=== PATIENT | female | born 1945 | race Caucasian/White ===

== ENCOUNTER → 2020-08-18 | Day surgery (SDC) | payer MEDICARE ==
[2020-08-13 17:31] VITALS: BMI 27.9
[~2020-08-18] MED LIST: LACTATED RINGERS 1,000 ML IV SCH; PROPOFOL 10 MG/ML 20 ML VIAL IV ONE; SODIUM CHLORIDE 0.9% 1,000 ML IV SCH
[2020-08-18 06:48] LABS: Calcium 9.6 mg/dL (8.4-10.2); Potassium 4.4 mmol/L (3.5-5.1)
[2020-08-18 07:53] VITALS: TEMP 97.3
[2020-08-18 07:55] VITALS: RESP 16
--- NOTE | 2020-08-18 08:24 | CE ---
CARDIAC ELECTROPHYSIOLOGY REPORT DATE OF SERVICE: 08/18/2020. PROCEDURE: Electrical cardioversion. INDICATION: New onset persistent atrial fibrillation. CLINICAL INFORMATION: Mrs. Gee is a 75-year-old lady with a known history of surgical closure of ASD more than 25 years ago. She developed recent onset atrial fib with moderate rate and has some shortness of breath with it. I initiated her on rate control, anticoagulation and also amiodarone. She remained in atrial fib and pharmacological efforts were unsuccessful. She was brought in for electrical cardioversion electively. PROCEDURE NOTE: Under the influence of ultra short-acting intravenous anesthetic agent with the attendance of the anesthesiologist, a single 200 joule shock was delivered with anterior and posterior patches. Patient converted to sinus rhythm, remained hemodynamically stable and neurologically intact. This was a successful electrical cardioversion. She will be discharged later on today if she remains stable. MMODL / CANDICEN: [id number] /
[2020-08-18 08:31] VITALS: PULSE 74
[2020-08-18 09:00] VITALS: BP 131/60
== END ==
LOC: CATHCVL 05:51
PROVIDERS: ATTEND Internal Medicine Interventional Cardiology
DX: I48.19 Other persistent atrial fibrillation (principal); I34.0 Nonrheumatic mitral (valve) insufficiency; Z20.822 Contact with and (suspected) exposure to COVID-19; Z98.890 Other specified postprocedural states; Z79.01 Long term (current) use of anticoagulants; Z79.899 Other long term (current) drug therapy; Z88.2 Allergy status to sulfonamides; K21.9 Gastro-esophageal reflux disease without esophagitis
CPT/HCPCS: 92960; 80048; 87635; J2704; 93005

== ENCOUNTER → 2021-02-08 | Outpatient (CLI) | payer MEDICARE ==
--- NOTE | 2021-02-09 04:34 | MR ---
EXAMINATION TYPE: MR brain wo con DATE OF EXAM: 02/08/2021 COMPARISON: None HISTORY: Abnormal gait, Balance issues, Dizziness for a couple months FINDINGS: There is mild cerebral atrophy. There is no mass effect nor midline shift. There is no sign of intrac ranial hemorrhage. Diffusion images show no evidence of an acute infarct. Corpus callosum is intact. On the T2 and FLAIR images there are a few scattered foci of increased sig nal in the white matter of both cerebral hemispheres. Total number is less than 10 and these measure up to 3 mm. Cerebellum is intact. There is no evidence of a posterior fossa mass. Internal auditory canals appear normal. There is no evidence of cerebellopontine angle mass. Brainstem is intact. There is no eviden ce of sellar mass. There is no evidence of orbital mass. IMPRESSION: Mild atrophy. There are small scattered white matter high signal foci of uncertain significance. No e vidence of cortical infarct. No focal posterior fossa abnormality.
== END | disposition home or self-care (01) ==
LOC: RADMRIMAIN 16:32
PROVIDERS: ATTEND Family Medicine
DX: G31.9 Degenerative disease of nervous system, unspecified (principal)
CPT/HCPCS: 70551

== ENCOUNTER → 2021-02-16 | Outpatient (CLI) | payer MEDICARE ==
--- NOTE | 2021-02-16 16:20 | US ---
EXAMINATION TYPE: US carotid duplex BILAT DATE OF EXAM: 02/16/2021 COMPARISON: NONE CLINICAL HISTORY: R26.89 Abnormal gait due to balance impairment. EXAM MEASUREMENTS: RIGHT: Peak Systolic Velocity (PSV) cm/sec ----- Right CCA: 85.8 ----- Right ICA: 90.1 ----- Right ECA: 116. ICA/CCA ratio: 1.1 RIGHT: End Diastole cm/sec ----- Right CCA: 20.3 ----- Right ICA: 16.3 ----- Right ECA: 11.6 LEFT: Peak Systolic Velocity (PSV) cm/sec ----- Left CCA: 96.8 ----- Left ICA: 98.5 ----- Left ECA: 88.6 ICA/CCA ratio: 1.0 LEFT: End Diastole cm/sec ----- Left CCA: 19.2 ----- Left ICA: 31.4 ----- Left ECA: 17.1 VERTEBRALS (direction of flow): Right Vertebral: Antegrade Left Vertebral: Antegrade Rhythm: Normal No significant velocity elevations, minimal plaque. IMPRESSION: No evidence for hemodynamically significant stenosis. Criteria for Assigning % of Stenosis / Diameter reduction (Estimation based on the indirect measurements of the internal carotid artery velocities (ICA PSV). 1. Normal (no stenosis)=ICA PSV < 125 cm/s: ratio < 2.0: ICA EDV<40 cm/s. 2. Less than 50% stenosis=ICA PSV < 125 cm/s: ratio < 2.0: ICA EDV<40 cm/s. 3. 50 to 69% stenosis=ICA PSV of 125 to 230 cm/s: ration 2.0 ? 4.0: ICA EDV 40-100 cm/s. 4. Greater than 70% stenosis to near occlusion= ICA PSV > 230 cm/s: ratio > 4.0: ICA EDV > 100 cm/s. 5. Near occlusion= ICA PSV velocities may be low or undetectable: variable ratio and ICA EDV. 6. Total occlusion=unable to detect flow.
== END | disposition home or self-care (01) ==
LOC: RADUSWWP 15:40
PROVIDERS: ATTEND Family Medicine
DX: R26.89 Other abnormalities of gait and mobility (principal)
CPT/HCPCS: 93880

== ENCOUNTER 2021-09-12 06:28 | Day surgery (SDC) | payer MEDICARE ==
[~2021-09-12 06:28] MED LIST changes: +ACETAMINOPHEN TAB 500 MG TAB PO PRN; +HEPARIN SODIUM,PORCINE/PF 5,000 UNIT/0.5 ML SYRINGE SQ PRN; +LIDOCAINE 1% (10MG/ML) FOR IV START INTRADERMA PRN; +ONDANSETRON 4 MG/2 ML VIAL IVP ONE; -PROPOFOL 10 MG/ML 20 ML VIAL IV ONE; +Pre Op ABX Message 1 EACH MISC MISCELLANE ONE; -SODIUM CHLORIDE 0.9% 1,000 ML IV SCH; +fentaNYL (PF) 50 MCG/ML 2 ML AMP IV PRN
[2021-09-12] MEDS ORDERED: ONDANSETRON 4 MG/2 ML VIAL ONE (07:14)
[2021-09-12] MEDS ORDERED: MIDAZOLAM 2 MG/2 ML VIAL ONE (08:00)
[2021-09-12] MEDS ORDERED: fentaNYL (PF) 50 MCG/ML 2 ML AMP ONE (08:00)
[2021-09-12] MEDS ORDERED: SODIUM CHLORIDE 0.9% 100 ML with ceFAZolin 2,000 MG IV ONE ×2 (08:00)
[2021-09-12] MEDS ORDERED: PHENYLEPHRINE-0.9% NACL SYG 1,000 MCG/10 ML SYRINGE ONE (08:00)
[2021-09-12] MEDS ORDERED: LIDOCAINE 2% INJ 20 MG/ML (2 ML VIAL) ONE (08:00)
[2021-09-12] MEDS ORDERED: KETOROLAC 15 MG/ML 1 ML VIAL ONE (08:00)
[2021-09-12] MEDS ORDERED: ceFAZolin 1,000 MG VIAL ONE (08:00)
[2021-09-12] MEDS ORDERED: PROPOFOL 10 MG/ML 20 ML VIAL IV ONE (08:00)
[2021-09-12] MEDS ORDERED: SUCCINYLCHOLINE CHLORIDE 100 MG/5 ML SYR IV ONE (08:00)
--- NOTE | 2021-09-12 08:01 | P.GSHP ---
History of Present Illness H&P Date: 09/12/21 Chief Complaint: Hemorrhoids 76-year-old female here today for elective hemorrhoidectomy. Patient was seen in the office 2 months ago. Please refer to that history and physical for details. Patient complaining of left-sided hemorrhoid. There is both pain and bleeding at times. Past Medical History Past Medical History: Atrial Fibrillation, Cancer, GERD/Reflux, Mitral Valve Prolapse (MVP) Additional Past Medical History / Comment(s): skin cancer History of Any Multi-Drug Resistant Organisms: None Reported Past Surgical History: Heart Catheterization, Hysterectomy, Tonsillectomy, Tubal Ligation Additional Past Surgical History / Comment(s): ASD repair 1990 Past Anesthesia/Blood Transfusion Reactions: No Reported Reaction, Motion Sickness Past Psychological History: Anxiety Smoking Status: Never smoker Past Alcohol Use History: Occasional Past Drug Use History: None Reported - Past Family History Father Family Medical History: Deep Vein Thrombosis (DVT) Brother(s) Family Medical History: Pulmonary Embolus Additional Family Medical History / Comment(s): POST COVID Medications and Allergies Home Medications Medication Instructions Recorded Confirmed Type Apixaban [Eliquis] 5 mg PO BID 08/13/20 09/12/21 History Metoprolol Tartrate [Lopressor] 25 mg PO BID 08/13/20 09/12/21 History Omeprazole 20 mg PO DAILY PRN 08/13/20 09/12/21 History Allergies Allergy/AdvReac Type Severity Reaction Status Date / Time Sulfa (Sulfonamide Allergy Dyspnea Verified 09/12/21 07:00 Antibiotics) pain medication Allergy Itching Uncoded 09/12/21 07:01 Surgical - Exam Vital Signs Temp Pulse Resp BP Pulse Ox 98.9 F 75 16 136/69 97 09/12/21 06:58 09/12/21 06:58 09/12/21 06:58 09/12/21 06:58 09/12/21 06:58 Physical exam: General: Well-developed, well-nourished HEENT: Normocephalic, sclerae nonicteric Abdomen: Nontender, nondistended Extremities: No edema Neuro: Alert and oriented Rectal: Left external hemorrhoid with mild induration Assessment and Plan (1) Hemorrhoid Narrative/Plan: 76-year-old female with symptomatically external hemorrhoid in the left lateral location. We'll proceed with operative hemorrhoidectomy at this time. Risks of bleeding, infection, scarring, stricture, fistula, fissure, recurrence reviewed. She understands and wishes to proceed. Current Visit: Yes Status: Acute Code(s): K64.9 - UNSPECIFIED HEMORRHOIDS SNOMED Code(s): 49425455
[2021-09-12 08:11] LABS: African American GFR (CKD) >90 (>60 ml/min/1.73 sqM); Anion Gap 6 mmol/L; Blood Urea Nitrogen 15 mg/dL (7-17); Carbon Dioxide 30 mmol/L (22-30); Chloride 105 mmol/L (98-107); Glucose 108 mg/dL (74-99); Non-African American GFR(CKD) 82 (>60 ml/min/1.73 sqM); Potassium 4.3 mmol/L (3.5-5.1); Sodium 141 mmol/L (137-145)
[2021-09-12] MEDS ORDERED: GELATIN SPONGE,ABSORB (LARGE) 1 EACH SPONGE TOPICAL ONE (08:31)
[2021-09-12] MEDS ORDERED: BUPIVACAINE (PF) 0.25% 30 ML VIAL SQ ONE (08:35)
[2021-09-12] MEDS ORDERED: HYDROcodone/APAP 5-325MG 1 EACH TAB PO PRN (08:44)
[2021-09-12] MEDS ORDERED: NALOXONE 0.4 MG/ML 1 ML VIAL IV PRN (08:44)
--- NOTE | 2021-09-12 08:50 | P.OP ---
Date of Procedure: 09/12/21 Procedure(s) Performed: PREOPERATIVE DIAGNOSIS: Symptomatic hemorrhoids POSTOPERATIVE DIAGNOSIS: Same PROCEDURE: Internal and external hemorrhoidectomy left lateral location SURGEON: Aneudy EBL:. 5 mL ANESTHESIA: Gen. COMPLICATIONS: None OPERATIVE PROCEDURE: Patient was placed under general anesthesia and then placed in the prone jackknife position. The perianal region was prepped and draped sterilely. The patient did have circumferential hemorrhoidal tissue both internal and external noted with the largest area was in the left lateral position. This was a location that was addressed today. The rectal retractor was utilized. A 3-0 chromic stitch was placed at the apex of the hemorrhoidal vasculature. This stitch was left in place for later closure. An elliptical incision was made using a combination of the scalpel, electrocautery, and the Harmonic scalpel to excise the hemorrhoidal tissue in the internal and external component. Bleeding was controlled using primarily the Harmonic scalpel and cautery. The area was irrigated. No bleeding was seen. I then closed the defect using the running locking 3-0 chromic stitch that was previously used. The area again was inspected for bleeding. None was seen. A Gelfoam was rolled and placed in the distal rectum adjacent to the incision line. The area was localized with quarter percent Marcaine solution. DISPOSITION: Stable to recovery room
[2021-09-12 09:00] VITALS: TEMP 97
[2021-09-12 09:21] VITALS: RESP 18
[2021-09-12 10:08] VITALS: BP 115/73; PULSE 58
== END 2021-09-12 10:16 | disposition home or self-care (01) ==
LOC: OR 06:28
PROVIDERS: ATTEND Surgery
DX: K64.8 Other hemorrhoids (principal); K64.4 Residual hemorrhoidal skin tags; I48.91 Unspecified atrial fibrillation; I34.1 Nonrheumatic mitral (valve) prolapse; K21.9 Gastro-esophageal reflux disease without esophagitis; Z85.828 Personal history of other malignant neoplasm of skin; Z79.899 Other long term (current) drug therapy; Z79.01 Long term (current) use of anticoagulants; Z88.2 Allergy status to sulfonamides; Z90.710 Acquired absence of both cervix and uterus; Z90.89 Acquired absence of other organs; Z98.51 Tubal ligation status
CPT/HCPCS: 88304; 80048; 46255; J2250; J2405; J0690; J3010; J1885; J2370; J0330; J2704; J1644; J2001

== ENCOUNTER → 2022-02-06 | Outpatient (CLI) | payer MEDICARE ==
--- NOTE | 2022-02-07 18:50 | MM ---
Reason for Exam: Screening (asymptomatic). Last mammogram was performed 1 year(s) and 8 month(s) ago. Patient History: Menarche at age 16. Patient has no children. Left ovary removed at age 42. Right ovary removed at age 42. Hysterectomy at age 42. Postmenopausal. Risk Values: Darline 5 year model risk: 1.8%. NCI Lifetime model risk: 4.1%. Prior Study Comparison: 11/08/2016 Bilateral MG screening mammo w CAD - 2, [facility]. 02/19/2018 Bilateral MG screening mammo w/o cad, [facility]. 06/09/2019 Bilateral MG screening mammo w CAD - 2, [facility]. 06/16/2020 Bilateral MG screening mammo w CAD - 2, [facility]. Tissue Density: The breast tissue is heterogeneously dense. This may lower the sensitivity of mammography. Findings: Analyzed By CAD. Areas of asymmetric density remain unchanged. There is no suspicious group of microcalcifications or new suspicious mass in either breast. Overall Assessment: Benign, BI-RAD 2 Management: Screening Mammogram of both breasts in 1 year. 1. Patient should continue monthly self breast exams. 2. A clinical breast exam by your physician is recommended on an annual basis. 3. This exam should not preclude additional follow-up of suspicious palpable abnormalities. Electronically signed and approved by: Augusto Mckoen M.D. Radiologist
== END ==
LOC: RADMAMWWP 14:56
PROVIDERS: ATTEND Family Medicine
DX: Z12.31 Encounter for screening mammogram for malignant neoplasm of breast (principal)
CPT/HCPCS: 77063; 77067

== ENCOUNTER 2022-11-02 06:06 | Day surgery (SDC) | payer MEDICARE ==
[2022-10-31 12:51] VITALS: BMI 29.1
[2022-11-02] MEDS ORDERED: LACTATED RINGERS 1,000 ML IV ONE (07:17)
[2022-11-02 07:23] VITALS: TEMP 97.7
[2022-11-02] MEDS ORDERED: PROPOFOL 10 MG/ML 20 ML VIAL IV ONE (07:38)
[2022-11-02 07:46] LABS: African American GFR (CKD) >90 (>60 ml/min/1.73 sqM); Anion Gap 5 mmol/L; Blood Urea Nitrogen 21 mg/dL (7-17); Calcium 9.1 mg/dL (8.4-10.2); Carbon Dioxide 28 mmol/L (22-30); Chloride 104 mmol/L (98-107); Glucose 88 mg/dL (74-99); Non-African American GFR(CKD) 89 (>60 ml/min/1.73 sqM); Sodium 137 mmol/L (137-145)
[2022-11-02 09:14] VITALS: BP 125/78; PULSE 60; RESP 14
--- NOTE | 2022-11-02 09:38 | CE ---
CARDIAC ELECTROPHYSIOLOGY REPORT PROCEDURE PERFORMED: Electrical cardioversion. INDICATION: Persistent coarse atrial fibrillation or atypical flutter. CLINICAL INFORMATION: Ms. Gee is a 77-year-old lady with a known history of surgical closure of ASD nearly 30 years ago. She has recurrent paroxysmal episodes of atrial fibrillation which is actually a course of atrial fibrillation, almost look like atypical flutter. I have placed her on flecainide and beta rebecca. Rate control was achieved. She is well anticoagulated and is brought in for electrical cardioversion. Risks, benefits, options, rationale were discussed with the patient and her . PROCEDURE NOTE: Under the influence of [id number] intravenous anesthetic agent with the attendance of the anesthesiologist Dr. Glaser, a single shock was given with anterior and posterior patches. Fifty joules in the synchronized fashion. She converted to sinus rhythm, remained neurologically intact and hemodynamically stable. This was a successful electrical cardioversion. MMODL / IJN: [id number] /
== END 2022-11-02 09:53 | disposition home or self-care (01) ==
LOC: OR 06:06
PROVIDERS: ATTEND Internal Medicine Interventional Cardiology
DX: I48.19 Other persistent atrial fibrillation (principal); E78.5 Hyperlipidemia, unspecified; F41.9 Anxiety disorder, unspecified; F32.A Depression, unspecified; K21.9 Gastro-esophageal reflux disease without esophagitis; Z79.899 Other long term (current) drug therapy; Z88.2 Allergy status to sulfonamides
CPT/HCPCS: 93005; 92960; 80048; J2704

== ENCOUNTER → 2022-12-22 | Outpatient (CLI) | payer MEDICARE ==
[2022-12-22 16:42] LABS: African American GFR (CKD) >90 (>60 ml/min/1.73 sqM); Blood Urea Nitrogen 21 mg/dL (7-17); Non-African American GFR(CKD) 81 (>60 ml/min/1.73 sqM)
--- NOTE | 2022-12-22 21:10 | CT ---
EXAMINATION TYPE: CT angio chest CT DLP: 670 mGycm, Automated exposure control for dose reduction was used. DATE OF EXAM: 12/22/2022 5:32 PM COMPARISON: None CLINICAL INDICATION:Female, 77 years old with history of I71.20 THORACIC AORTIC ANEURYSM,; sent by pc p for abnormal chest xray TECHNIQUE/CONTRAST: CTA scan of the thorax is performed without and with IV Contrast, patient injected with 100 cc mL of Isovue 370, MIP images were obtained. 3-D reformats of the aorta were created on a separate workstati on. FINDINGS: Lungs/Pleura: No evidence of focal consolidation, pleural effusion or pneumothorax. Minimal biapical pleural-parenchymal scarring. Bilateral lower lobe subsegmental atelectasis. Right upper lobe 6.2 mm calcified granuloma (series 506, image 40). Linear scarring atelectasis within the right middle lobe. Airway: Large airways are patent. Heart: Mildly prominent. No pericardial effusion. Vasculature: No evidence of aortic aneurysm. The aortic root measures 3.0 cm. The ascending thoracic aorta measures up to 3.1 cm. The descending thoracic aorta measures up to 2.2 cm. No intramural hemat davis or dissection. No pulmonary embolism. The visualized celiac axis and SMA are widely patent. Mediastinum: No evidence of adenopathy. Few calcified mediastinal and right hilar lymph nodes. Musculoskeletal: No acute osseous abnormalities. Median sternotomy wires. Soft Tissues: Unremarkable. Lower neck: Subcentimeter hypodense nodules within the left thyroid lobe.. Upper Abdomen: Calcified granulomas within the liver and spleen.. Left renal cysts. IMPRESSION: 1. No thoracic aortic aneurysm. 2. Sequelae of prior granuloma disease.
== END | disposition home or self-care (01) ==
LOC: RADCTMAIN 15:47
PROVIDERS: ATTEND Family Medicine
DX: I71.20 Thoracic aortic aneurysm, without rupture, unspecified (principal); D71 Functional disorders of polymorphonuclear neutrophils; R91.8 Other nonspecific abnormal finding of lung field
CPT/HCPCS: 82565; 84520; 71275; 36415; Q9967

== ENCOUNTER → 2023-01-02 | Outpatient (CLI) | payer MEDICARE ==
[2023-01-02 16:40] LABS: HCT 46.6 % (37.2-46.3); HGB 14.7 d/dL (12.0-15.0); MCH 30.3 pg (27.0-32.0); MCHC 31.5 d/dL (32.0-37.0); MCV 96.1 FL (80.0-97.0); Mean Platelet Volume 11.6 FL (9.5-12.2); NRBC Per 100 WBC 0 X 10*3/uL (0.00-0.01); Platelet Count 201 X 10*3/uL (140-440); RBC 4.85 X 10*6/uL (4.10-5.20); RDW 14.6 % (11.5-14.5); WBC 7.74 X 10*3/uL (4.50-10.00)
[2023-01-02 17:56] LABS: Blood Urea Nitrogen 20.2 mg/dL (9.0-27.0); Carbon Dioxide 29.2 mmol/L (21.6-31.8); Chloride 103 mmol/L (96-109); Sodium 141 mmol/L (135-145)
== END | disposition home or self-care (01) ==
LOC: LABWHC1 12:10
PROVIDERS: ATTEND Internal Medicine Clinical Cardiac Electrophysiology
DX: Z01.812 Encounter for preprocedural laboratory examination (principal); I48.3 Typical atrial flutter
CPT/HCPCS: 36415; 80051; 82565; 84520; 85027

== ENCOUNTER 2023-01-09 09:39 | Day surgery (SDC) | payer MEDICARE ==
[2023-01-05 08:40] VITALS: BMI 28.6
[~2023-01-09 09:39] MED LIST changes: -ACETAMINOPHEN TAB 500 MG TAB PO PRN; -HEPARIN SODIUM,PORCINE/PF 5,000 UNIT/0.5 ML SYRINGE SQ PRN; -LIDOCAINE 1% (10MG/ML) FOR IV START INTRADERMA PRN; -ONDANSETRON 4 MG/2 ML VIAL IVP ONE; -Pre Op ABX Message 1 EACH MISC MISCELLANE ONE; +SODIUM CHLORIDE 0.9% 1,000 ML IV SCH; -fentaNYL (PF) 50 MCG/ML 2 ML AMP IV PRN
[2023-01-09] MEDS ORDERED: SODIUM CHLORIDE 0.9% 1,000 ML IV ONE (09:49)
[2023-01-09] MEDS ORDERED: LIDOCAINE 1% INJ 10MG/ML (20 ML MDV) ONE (14:21)
[2023-01-09] MEDS ORDERED: PROPOFOL 10 MG/ML 20 ML VIAL IV ONE (14:32)
[2023-01-09] MEDS ORDERED: ROCURONIUM 10 MG/ML (5 ML VIAL) IV ONE (14:32)
[2023-01-09] MEDS ORDERED: NEOSTIGMINE 1 MG/ML 10 ML VIAL ONE (14:32)
[2023-01-09] MEDS ORDERED: GLYCOPYRROLATE 0.2 MG/ML 2 ML VIAL ONE (14:32)
[2023-01-09] MEDS ORDERED: HEPARIN SODIUM,PORCINE 5,000 UNIT/ML 1 ML VIAL ONE (14:32)
[2023-01-09] MEDS ORDERED: MIDAZOLAM 2 MG/2 ML VIAL ONE (14:32)
[2023-01-09] MEDS ORDERED: ISOPROTERENOL 250 MCG/1.25 ML SYR IV ONE (14:32)
[2023-01-09] MEDS ORDERED: SUCCINYLCHOLINE CHLORIDE 200 MG/10 ML VIAL IV ONE (14:32)
[2023-01-09] MEDS ORDERED: fentaNYL (PF) 50 MCG/ML 2 ML AMP ONE (14:32)
[2023-01-09] MEDS ORDERED: LIDOCAINE 2% INJ 20 MG/ML (2 ML VIAL) ONE (14:32)
--- NOTE | 2023-01-09 14:49 | P.HPCAR ---
History of Present Illness This is Dr. Roy dictating an H/P on this patient The patient was interviewed and examined IMPRESSION / ASSESSMENT: Paroxysmal atrial fibrillation which organized to sustained typical atrial flutter with 2-1 AV block Status post ASD repair in 1990, no open heart surgery Failed flecainide PLAN: Diagnoses the study and atrial flutter ablation off flecainide Continue anticoagulation Stay off flecainide and watch for any sustained episodes of symptomatic atrial fibrillation following atrial flutter ablation HPI Patient continues to experience recurrent palpitations and shortness of breath She has a history of atrial fibrillation and this then organized to sustained atrial flutter with 2-1 block No fever chills mild cough minimal expectoration No chest discomfort No undue shortness of breath at rest or in the supine position ROS: No fever chills or rigors, no cough, phlegm or expectoration, no nausea, vomiting or diarrhea, no hematuria, dysuria, no musculoskeletal complaints, no strokes or seizures, no skin lesions. EXAMINATION: Repeat blood pressure 125/71 Pulse rate 94 beats a minute irregular Patient in typical atrial flutter Breath sounds are equal bilaterally no rhonchi no crackles Heart sounds are irregular no murmurs No JVD REVIEW OF LABS, ECG & MEDICAL DATA ELIQUIS 5 mg twice daily Metoprolol Physical Exam Vitals: Vital Signs Temp Pulse Resp BP Pulse Ox 01/09/23 10:06 97.9 F 104 H 16 181/89 97 Intake and Output 01/08/23 01/09/23 01/09/23 22:59 06:59 14:59 Intake Total 0 Balance 0 Intake: IV 0 Other: Weight 78.8 kg Past Medical History Past Medical History: Atrial Fibrillation, Cancer, GERD/Reflux, Hyperlipidemia, Mitral Valve Prolapse (MVP) Additional Past Medical History / Comment(s): Hx skin cancer, "cervical dizziness" History of Any Multi-Drug Resistant Organisms: None Reported Past Surgical History: Bladder Surgery, Heart Catheterization, Hysterectomy, Tonsillectomy, Tubal Ligation Additional Past Surgical History / Comment(s): ASD repair 1990, bladder sling. CARDIOVERSION, COLONOSCOPY, Past Anesthesia/Blood Transfusion Reactions: No Reported Reaction Smoking Status: Never smoker - Past Family History Father Family Medical History: Deep Vein Thrombosis (DVT) Brother(s) Family Medical History: Pulmonary Embolus Additional Family Medical History / Comment(s): POST COVID. Physical Examination Vital Signs Temp Pulse Resp BP Pulse Ox 01/09/23 10:06 97.9 F 104 H 16 181/89 97 Intake and Output 01/08/23 01/09/23 01/09/23 22:59 06:59 14:59 Intake Total 0 Balance 0 Intake: IV 0 Other: Weight 78.8 kg Results Current Medications Generic Name Dose Route Start Last Admin Trade Name Freq PRN Reason Stop Dose Admin Sodium Chloride 1,000 mls @ 20 mls/hr 01/09/23 05:57 Saline 0.9% IV 02/08/23 05:58 .Q24H PABLO Lactated Ringer's 1,000 mls @ 20 mls/hr 01/09/23 05:57 Lactated Ringers IV 02/08/23 05:58 .Q24H PABLO Cefazolin Sodium 2 gm/ Sodium 50 mls @ 100 mls/hr 01/09/23 14:41 Chloride IVPB 01/09/23 15:10 ONCE STA Protocol Intake and Output 01/08/23 01/09/23 01/09/23 22:59 06:59 14:59 Intake Total 0 Balance 0 Intake: IV 0 Other: Weight 78.8 kg Patient Weight 01/10/23 06:59 Weight 78.8 kg
[2023-01-09] MEDS ORDERED: HEPARIN SODIUM (1,000 UNIT/ML) 1,000 UNIT in SODIUM CHLORIDE 0.9% 1,000 ML IRRIGATION ONE (15:00)
[2023-01-09] MEDS ORDERED: LIDOCAINE 1% INJ 10MG/ML (20 ML MDV) SQ ONE ×2 (15:03→15:05)
[2023-01-09] MEDS ORDERED: ACETAMINOPHEN TAB 325 MG TAB PO PRN (17:09)
[2023-01-09] MEDS ORDERED: ACETAMINOPHEN IV (For NPO) 1,000 MG in EMPTY BAG 1 BAG IVPB ONE (17:09)
--- NOTE | 2023-01-09 17:33 | P.EPPROC ---
- EP Procedure Note Electrophysiology Procedure Note: Diagnosis Atrial tachycardia/atrial flutter Status post open-heart surgery and patch closure of the ASD many years back Paroxysmal atrial fibrillation that degenerated into typical atrial flutter, sustained Failed medical treatment as well as ventricular rate control Final diagnosis Typical atrial flutter Status post successful ablation with termination and bidirectional block Details Patient was brought to the EP lab in a fasting state. Written informed consent was obtained prior to the procedure. Procedure performed under general anesthesia Venous sheaths placed in the right left femoral veins. Cath was placed in the high right atrium, His bundle area, right ventricle, coronary sinus. Pentaray catheter and intracardiac echo catheter placed Intracardiac echo performed. No intracardiac mass or thrombus. No mass in the left atrial appendage ASD patch site evaluated. Mildly thickened intra-atrial septum but this should be easily accessible for transseptal puncture for future A. fib ablation when indicated Patient was in tachycardia, atrial cycle length 296 ms, concentric CS activation A Pentaray catheter was placed. The CS catheter was placed Right atrial mapping was performed activation around the tricuspid annulus was confirmed Isthmus dependency further confirmed with entrainment mapping An irrigated tip RF catheter and a long sheath were used to perform RF ablation in the cavo tricuspid isthmus. A complete line of block was made. Rumination of atrial flutter recurred Following that a complete line of block was made and interrogated Isthmus conduction time of 245 ms in either direction Following that an EP study was performed in sinus rhythm Sinus cycle length 741 ms, QRS 97 and QT 380 ms AH 45 and HV 56 ms VA Wenckebach block greater than 600 ms AV node Wenckebach block 280 ms on Isuprel Sinus node recovery times were 1023, 1991 and 1083 ms Atrial extra stimulation performed on Isuprel Atrial ERP 400\210 ms On high-dose Isuprel and with atrial pacing, atrial fibrillation was not induced at the study VISIT sheaths removed. Groins sealed with Vascade Intracardiac echo at the end of procedure did not reveal any acute pericardial effusion Patient tolerated the procedure well without any acute complications Plan Continue ELIQUIS Hold off on flecainide and metoprolol use Watch for any episodes of atrial fibrillation
--- NOTE | 2023-01-09 17:34 | P.PRLE ---
RE: Juana Gee Dear Charlie Arias underwent a diagnostic EP study which revealed typical atrial flutter She underwent successful atrial flutter ablation I lost her to continue ELIQUIS but hold off on using flecainide and metoprolol We will watch her for any episodes of atrial fibrillation from now on Thank you for entrusting me with the care of the patient Warm regards Sincerely Joey Roy
[2023-01-09] MEDS: APIXABAN 5 MG TAB PO SCH (20:21)
[2023-01-10] MEDS: APIXABAN 5 MG TAB PO SCH (08:05)
[2023-01-10 13:15] VITALS: BP 123/67; PULSE 89; RESP 18; TEMP 98.7
--- NOTE | 2023-01-11 08:44 | P.DS ---
Providers Attending physician: Joey Roy Primary care physician: [facility] Course: Patient is doing well post ablation line no chest discomfort dizziness or lightheadedness Groins have healed well On examination her heart sounds are normal, normal S1 normal S2 Lungs are clear no rhonchi no crackles Her blood pressure is normal 122/72. His mercury afebrile Pulse rate in the 80s and 90s sinus mechanism Twelve-lead EKG shows first-degree AV block with ST depression in V3-V6 and the inferior leads Impression Typical atrial flutter status post successful ablation of isthmus conduction time greater than 240 ms AST patch closure, open-heart surgery many years back First-degree A-V block ST depression in V3-V6 and the inferior leads Patient is doing well and is stable for discharge Plan Discontinue flecainide and metoprolol for now Follow-up with Dr. Beach Continue ELIQUIS Plan - Discharge Summary Discharge Rx Participant: No New Discharge Prescriptions: No Action Apixaban [Eliquis] 5 mg PO BID RX: Flecainide Acetate 25 mg PO HS Cholecalciferol [Vitamin D3 (25 Mcg = 1000 Iu)] 50 mcg PO DAILY lysine HCL [l-Lysine] 1,000 mg PO DAILY Ubidecarenone [Co Q-10] 200 mg PO DAILY Omeprazole [PriLOSEC] 20 mg PO DAILY PRN PRN Reason: Gi Upset Metoprolol Tartrate [Lopressor] 25 mg PO QAM RX: Flecainide Acetate 50 mg PO QAM Vitamin C/Biotin [Hair, Skin and Nails Chew] 1 tab PO DAILY Ultimate Eye Support 1 tab PO DAILY Discharge Medication List Apixaban [Eliquis] 5 mg PO BID 08/13/20 [History] Metoprolol Tartrate [Lopressor] 25 mg PO QAM 08/13/20 [History] Cholecalciferol [Vitamin D3 (25 Mcg = 1000 Iu)] 50 mcg PO DAILY 10/31/22 [History] RX: Flecainide Acetate 25 mg PO HS 10/31/22 [History] RX: Flecainide Acetate 50 mg PO QAM 10/31/22 [History] Ubidecarenone [Co Q-10] 200 mg PO DAILY 10/31/22 [History] Ultimate Eye Support 1 tab PO DAILY 10/31/22 [History] Vitamin C/Biotin [Hair, Skin and Nails Chew] 1 tab PO DAILY 10/31/22 [History] lysine HCL [l-Lysine] 1,000 mg PO DAILY 10/31/22 [History] Omeprazole [PriLOSEC] 20 mg PO DAILY PRN 01/09/23 [History] Follow up Appointment(s)/Referral(s): Bennie Beach MD [STAFF PHYSICIAN] - 01/23/23 3:30 pm (Appointment will be at the [facility] Patient Instructions/Handouts: Cardiac Ablation (DC) Activity/Diet/Wound Care/Special Instructions: hold flecinide and metoprolol until pt follows with dr beach Discharge Disposition: HOME SELF-CARE
== END 2023-01-10 12:40 | disposition home or self-care (01) ==
LOC: CATHEP 09:39 → 6NMEDSUR 16:40 → CATHEP 01-10 12:40
PROVIDERS: ATTEND Internal Medicine Clinical Cardiac Electrophysiology
DX: I48.3 Typical atrial flutter (principal); I48.0 Paroxysmal atrial fibrillation; K21.9 Gastro-esophageal reflux disease without esophagitis; E78.5 Hyperlipidemia, unspecified; I34.1 Nonrheumatic mitral (valve) prolapse; Z79.01 Long term (current) use of anticoagulants; Z87.74 Personal history of (corrected) congenital malformations of heart and circulatory system; Z85.828 Personal history of other malignant neoplasm of skin; Z90.710 Acquired absence of both cervix and uterus; Z95.1 Presence of aortocoronary bypass graft; Z98.51 Tubal ligation status; Z90.89 Acquired absence of other organs; Z98.890 Other specified postprocedural states; Z86.711 Personal history of pulmonary embolism; Z79.899 Other long term (current) drug therapy
CPT/HCPCS: 93623; 93662; 93653; 86900; 86901; 86850; C1759; C1894; C1769 ×2; C1760; C1730; C1731; C1893; C1732; J0690; J2001; J1644; J0131

== ENCOUNTER → 2023-02-07 | Outpatient (CLI) | payer MEDICARE ==
--- NOTE | 2023-02-08 11:28 | MM ---
Reason for Exam: Screening (asymptomatic). Last screening mammogram was performed 12 month(s) ago. Patient History: Menarche at age 16. Patient has no children. Left ovary removed at age 42. Right ovary removed at age 42. Hysterectomy at age 42. Postmenopausal. Patient used Estrogen for 8 years. Risk Values: Darline 5 year model risk: 1.8%. NCI Lifetime model risk: 3.9%. Prior Study Comparison: 06/09/2019 Bilateral MG screening mammo w CAD - 2, [facility]. 06/16/2020 Bilateral MG screening mammo w CAD - 2, [facility]. 02/06/2022 Bilateral MG 3D screening mammo w/cad, [facility]. Tissue Density: The breast tissue is heterogeneously dense. This may lower the sensitivity of mammography. Findings: Analyzed By CAD. There is no suspicious group of microcalcifications or new suspicious mass in either breast. Overall Assessment: Benign, BI-RAD 2 Management: Screening Mammogram of both breasts in 1 year. . Patient should continue monthly self-breast exams. A clinical breast exam by your physician is recommended on an annual basis. This exam should not preclude additional follow-up of suspicious palpable abnormalities. Note on Darline scores and lifetime risk: 1. A Darline score greater than 3% is considered moderate risk. If this is the case, consider specialist referral to assess eligibility for a risk reducing agent. 2. If overall lifetime risk for the development of breast cancer is 20% or higher, the patient may qualify for future screening with alternating mammogram and breast MRI. Electronically signed and approved by: Umesh Cho M.D. Radiologis
== END | disposition home or self-care (01) ==
LOC: RADMAMWWP 11:07
PROVIDERS: ATTEND Family Medicine
DX: Z12.31 Encounter for screening mammogram for malignant neoplasm of breast (principal); Z78.0 Asymptomatic menopausal state
CPT/HCPCS: 77063; 77067

== ENCOUNTER → 2024-01-17 | Outpatient (CLI) | payer MEDICARE ==
--- NOTE | 2024-01-18 15:49 | US ---
EXAMINATION TYPE: US carotid duplex BILAT DATE OF EXAM: 01/17/2024 COMPARISON: NONE CLINICAL INDICATION: Female, 78 years old with history of Z91.89 OTH PERSONAL RISK FACTORS; No HTN. N o hx tia. TECHNIQUE: Carotid duplex ultrasound examination. Indirect Doppler criteria was utilized. 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 Slightly elevated right ECA velocity. IMPRESSION: 1. Atheromatous plaquing with approximately 50% stenosis of the right internal carotid artery. 2. Less than 50% narrowing within the left internal carotid artery. Criteria for Assigning % of Stenosis / Diameter reduction (Estimation based on the indirect measurements of the internal carotid artery velocities (ICA PSV). 1. Normal (no stenosis)=ICA PSV < 125 cm/s: ratio < 2.0: ICA EDV<40 cm/s. 2. Less than 50% stenosis=ICA PSV < 125 cm/s: ratio < 2.0: ICA EDV<40 cm/s. 3. 50 to 69% stenosis=ICA PSV of 125 to 230 cm/s: ration 2.0 ? 4.0: ICA EDV 40-100 cm/s. 4. Greater than 70% stenosis to near occlusion= ICA PSV > 230 cm/s: ratio > 4.0: ICA EDV > 100 cm/s. 5. Near occlusion= ICA PSV velocities may be low or undetectable: variable ratio and ICA EDV. 6. Total occlusion=unable to detect flow. [facility], , 01/18/2024 3:47 PM
== END | disposition home or self-care (01) ==
LOC: RADUSWWP 14:20
PROVIDERS: ATTEND Family Medicine
DX: Z91.89 Other specified personal risk factors, not elsewhere classified
CPT/HCPCS: 93880

== ENCOUNTER → 2024-02-20 | Outpatient (CLI) | payer MEDICARE ==
--- NOTE | 2024-02-21 11:34 | MM ---
Reason for Exam: Screening (asymptomatic). Last screening mammogram was performed 12 month(s) ago. Patient History: Menarche at age 16. Patient has no children. Left ovary removed at age 42. Right ovary removed at age 42. Hysterectomy at age 42. Postmenopausal. Patient used Estrogen for 8 years. Risk Values: Darline 5 year model risk: 1.8%. NCI Lifetime model risk: 3.4%. Prior Study Comparison: 06/16/2020 Bilateral MG screening mammo w CAD - 2, [facility]. 02/06/2022 Bilateral MG 3D screening mammo w/cad, [facility]. 02/07/2023 Bilateral MG 3D screening mammo w/cad, [facility]. Tissue Density: The breasts are heterogeneously dense, which may obscure small masses. Findings: Analyzed By CAD. Left breast biopsy clip. Right breast: There is no suspicious group of microcalcifications or new suspicious mass. Left breast: There is no suspicious group of microcalcifications or new suspicious mass. Overall Assessment: Benign, BI-RAD 2 Management: Screening Mammogram of both breasts in [address] [facility] will attempt to contact patient to return for supplemental views and ultrasound if indicated. Patient should continue monthly self-breast exams. A clinical breast exam by your physician is recommended on an annual basis. This exam should not preclude additional follow-up of suspicious palpable abnormalities. Note on Darline scores and lifetime risk: 1. A Darline score greater than 3% is considered moderate risk. If this is the case, consider specialist referral to assess eligibility for a risk reducing agent. 2. If overall lifetime risk for the development of breast cancer is 20% or higher, the patient may qualify for future screening with alternating mammogram and breast MRI. [facility], , 02/21/2024 11:31 AM. Electronically signed and approved by: Juan Allen DO
== END | disposition home or self-care (01) ==
LOC: RADMAMWWP 15:57
PROVIDERS: ATTEND Family Medicine
DX: Z12.31 Encounter for screening mammogram for malignant neoplasm of breast (principal); R92.333 Mammographic heterogeneous density, bilateral breasts; Z78.0 Asymptomatic menopausal state; Z90.722 Acquired absence of ovaries, bilateral
CPT/HCPCS: 77063; 77067